=== PATIENT | female | born 1990 | race Caucasian/White ===

== ENCOUNTER 2019-03-08 22:45 | Emergency (ER) | payer SELFPAY ==
[~2019-03-08] VITALS: Ht 165.1 cm; Wt 59.0 kg
[2019-03-08] MEDS ORDERED: LORazepam 2MG/ML-1ML VIAL IV ONE (23:15)
[2019-03-08] MEDS ORDERED: HALOPERIDOL LACTATE 5 MG/ML INJ VIAL IM ONE (23:15)
[2019-03-08] MEDS ORDERED: diphenhdrAMINE HCL 50 MG/1 ML VL IM ONE (23:15)
[2019-03-08] MEDS ORDERED: LORazepam 2MG/ML-1ML VIAL IM ONE (23:30)
[2019-03-09 02:22] LABS: Basophils # (auto) 0.1 uL; Basophils % (auto) 1.2 % (0.0-2.0); Eosinophils # (auto) 0 uL; Eosinophils % (auto) 0.3 % (0.0-7.0); Hematocrit 34.9 % (36.0-46.0); Lymphocytes # (auto) 1.5 uL; Lymphocytes % (auto) 32.7 % (10.0-50.0); Mean Corpuscular Hemoglobin 32.6 pg (28.0-32.0); Mean Corpuscular Hgb Conc. 34.3 g/dL (32.0-36.0); Monocytes # (auto) 0.5 uL; Monocytes % (auto) 10.3 % (0.0-12.0); Neutrophils # (auto) 2.6 uL; Neutrophils % (auto) 55.5 % (37.0-80.0); Nucleated Red Blood Cells % 0.1 %; Platelet Count (auto) 213 10^3/uL (140-450); Red Blood Cells 3.68 10^6/uL (4.0-5.20); Red Cell Distribution Width 12.4 % (11.8-14.3); White Blood Cell 4.7 10^3/uL (4.4-10.8)
[2019-03-09 02:39] LABS: Albumin 3.7 g/dL (3.4-5.0); Anion Gap 8 (5-15); Aspartate Aminotransferase 35 U/L (15-37); BUN/Creatinine Ratio 11.3; Blood Alcohol < 3.0 mg/dL (0-5); Blood Urea Nitrogen 8 mg/dL (7-18); Calcium 8.3 mg/dL (8.5-10.1); Carbon Dioxide 22 mmol/L (21-32); Chloride 111 mmol/L (98-107); GFR African American 125 mL/min; GFR Non-African American 103 mL/min; Glucose 81 mg/dL (74-106); Magnesium 2.2 mg/dL (1.6-2.6); Potassium 3.6 mmol/L (3.5-5.1); Sodium 141 mmol/L (136-145)
[2019-03-09 02:42] LABS: Alanine Aminotransferase 29 U/L (13-56); Alkaline Phosphatase 56 U/L (45-117); Bilirubin, Total 0.4 mg/dL (0.2-1.0); Total Protein 6.9 g/dL (6.4-8.2)
[2019-03-09 02:43] LABS: Acetaminophen < 2.0 ug/mL (10-30); Salicylate < 1.7 mg/dL (2.8-20.0)
[2019-03-09 04:15] LABS: Urine WBC None Seen /hpf (0 - 5)
[2019-03-09 04:40] LABS: Urine Pregnacy Test Negative (Negative)
[2019-03-09 04:50] LABS: Urine Bacteria FEW /hpf (None Seen); Urine Blood Negative /uL (Negative); Urine Mucus FEW (None Seen); Urine Specific Gravity 1.006 (1.001-1.035)
[2019-03-09 04:53] LABS: Alcohol, Urine < 3.0 mg/dL (0-5); Amphetamine Screen, Urine NEGATIVE (NEGATIVE); Barbiturate Scree,Urine NEGATIVE (NEGATIVE); Benzodiazephine Screen, Urine NEGATIVE (NEGATIVE); Cannabinoid Screen, Urine NEGATIVE (NEGATIVE); Cocaine Screen, Urine NEGATIVE (NEGATIVE); Opiate Scree,Urine NEGATIVE (NEGATIVE); Phencyclidine Screen, Urine NEGATIVE (NEGATIVE)
[2019-03-10] MEDS ORDERED: cefTRIAXone SOD 1,000 MG VL IM ONE (00:15)
[2019-03-10] MEDS ORDERED: PHENAZOPYRIDINE HCL 100 MG TAB PO ONE (00:15)
--- NOTE | 2019-03-11 08:43 | NUR ---
Report from shift mechanic stated that efforts for placement were unsuccessful. No beds were available. We will continue to help facilitate placement, please notify us if you receive any calls for transfer and we shall do the same. Thank you have a great day!! Enrico Anderson [facility]
--- NOTE | 2019-03-12 20:34 | NUR ---
Change of shift report, no beds at this time for placement, however will continue to send out information.
[2019-03-13] MEDS: OLANZapine 5 MG TAB PO SCH ×2 (10:01→21:40)
[2019-03-13] MEDS ORDERED: OLANZapine 5 MG TAB ONE (21:37)
[2019-03-14] MEDS: OLANZapine 5 MG TAB PO SCH ×2 (10:00→22:12)
--- NOTE | 2019-03-14 10:54 | NUR ---
[facility] s/w Talha, packet faxed for review [facility] s/w Ashley no beds [facility] s/w Fadi not contracted with self-pay
[2019-03-14] MEDS ORDERED: MILK OF MAGNESIA 30ML SUSP PO ONE (22:30)
[2019-03-15] MEDS ORDERED: DOCUSATE SOD 100 MG CAP PO ONE (09:44)
[2019-03-15] MEDS ORDERED: OLANZapine 5 MG TAB ONE (09:44)
[2019-03-15] MEDS ORDERED: DOCUSATE SOD 100 MG CAP PO PRN (09:45)
[2019-03-15] MEDS: OLANZapine 5 MG TAB PO SCH (09:53)
[2019-03-15 17:05] VITALS: BP 123/64
== END 2019-03-15 17:28 | disposition short-term general hospital (02) ==
LOC: EDBD 22:45 → ER 22:52
DX: F20.9 Schizophrenia, unspecified (principal); Z91.14 Patient's other noncompliance with medication regimen
CPT/HCPCS: 36415; 71046; 80053; 80307; 80320; 80329; 81001; 81025; 83735; 85025; 96372; 99285; J0696; J1200; J1630; A4565